=== PATIENT | female | born 1955 | race Caucasian/White ===

== ENCOUNTER 2017-10-30 23:45 | Inpatient (IN) | payer OTHER ==
[~2017-10-30] VITALS: Ht 152.4 cm; Wt 69.1 kg
[2017-10-31] VITALS (7 sets, daily range): BP systolic 157–197; BP diastolic 67–90; Ht 152.4 cm; Wt 69.1 kg
[2017-10-31 01:53] LABS: BASOPHIL % 0.5 % (0-2); PLATELET COUNT 224 x10^3mcL (130-400); RED CELL DISTRIBUTION WIDTH 11.9 % (11.5-14.5)
[2017-10-31 02:01] LABS: CALCIUM 8.4 mg/dL (8.5-10.1); CARBON DIOXIDE 27.1 mmol/L (21-32); CHLORIDE SERUM 108 mmol/L (98-107); CREATININE SERUM 0.5 mg/dL (0.6-1.0); GFR1 > 60 mL/min; GLUCOSE SERUM 100 mg/dL (74-106); POTASSIUM SERUM 3.9 mmol/L (3.5-5.1); SODIUM SERUM 140 mmol/L (136-145)
[2017-10-31 02:06] LABS: ALBUMIN 3.5 g/dL (3.4-5.0); ALKALINE PHOSPHATASE 80 U/L (46-116); ALT/SGPT 20 U/L (14-59); AST/SGOT 16 U/L (15-37); BILIRUBIN TOTAL 0.29 mg/dL (0.20-1.00); TOTAL PROTEIN, SERUM 6.6 g/dL (6.4-8.2)
[2017-10-31] MEDS ORDERED: AZITHROMYCIN250 M1 (03:33)
[2017-10-31] MEDS ORDERED: LOSARTAN POTASS25 M1 (03:34)
[2017-10-31 04:04] LABS: CHOLESTEROL/HDL RATIO 3.6; MAGNESIUM 2.3 mg/dL (1.8-2.4); PHOSPHOROUS 3.6 mg/dL (2.5-4.9)
[2017-10-31 04:13] LABS: T3 TOTAL 0.9 ng/mL
[2017-10-31 04:14] LABS: FREE T4 0.93 ng/dL (0.76-1.46); FREE THYROXINE INDEX 2.4 ug/dL (1.4-4.5)
[2017-10-31 06:50] LABS: microscopic required? NO
[2017-10-31 07:41] LABS: UA SPECIFIC GRAVITY <=1.005 (1.005-1.035); urine erythrocyte NEGATIVE (NEGATIVE)
[2017-10-31 07:56] LABS: AMPHETAMINE QUAL UR NONE DETECTED (NEG <=1000)
[2017-11-01 06:20] LABS: CALCIUM 8.7 mg/dL (8.5-10.1); CARBON DIOXIDE 24.9 mmol/L (21-32); CHLORIDE SERUM 105 mmol/L (98-107); CREATININE SERUM 0.5 mg/dL (0.6-1.0); GFR1 > 60 mL/min; GLUCOSE SERUM 87 mg/dL (74-106); POTASSIUM SERUM 3.3 mmol/L (3.5-5.1); SODIUM SERUM 140 mmol/L (136-145)
[2017-11-01 06:31] VITALS: BP 141/64
[2017-11-01 08:08] LABS: BASOPHIL % 0.4 % (0-2); PLATELET COUNT 193 x10^3mcL (130-400)
[2017-11-01 08:53] VITALS: BP 136/64; BP 189/73
[2017-11-01 10:19] VITALS: BP 136/64
[2017-11-01] MEDS ORDERED: CARVEDILOL6.25 M1 PO (10:59)
[2017-11-01] MEDS ORDERED: HYDROCHLOROTH12.5 M3 PO (10:59)
[2017-11-01] MEDS ORDERED: LISINOPRIL40 MG PO (11:00)
[2017-11-01] MEDS ORDERED: PRO40 PO (11:01)
[2017-11-01] MEDS ORDERED: ATORVASTATIN CA10 M1 PO (11:28)
== END 2017-11-01 14:33 | disposition home or self-care (01) | DRG 392 ==
LOC: ED 23:45 → DU 10-31 03:24
PROVIDERS: Emergency Medicine; Family Medicine
DX: K21.9 Gastro-esophageal reflux disease without esophagitis (principal); I10 Essential (primary) hypertension; E04.1 Nontoxic single thyroid nodule; M19.011 Primary osteoarthritis, right shoulder; Z53.29 Procedure and treatment not carried out because of patient's decision for other reasons; Z88.0 Allergy status to penicillin; Z79.899 Other long term (current) drug therapy
CPT/HCPCS: 83880; 84439; C9113; J7030; Q0092; Q9967